=== PATIENT | female | born 1970 | race Two or more races ===

== ENCOUNTER 2025-01-22 21:25 | Emergency (ER) | payer MEDICAID, SELFPAY ==
[2025-01-22 21:25] VITALS: BMI 32.9
[2025-01-22 21:30] VITALS: BP 132/87; PULSE 99; RESP 18; TEMP 36.6; O2SAT 98
--- NOTE | 2025-01-22 22:00 | PC.NURSE ---
Pt was called back to talk to a provider but told me she wanted to go home. Instructed Pt to wait at the front office secretary for the triage nurse so she can AMA.
== END 2025-01-22 22:05 | disposition left against medical advice (07) ==
LOC: SERX 22:02
PROVIDERS: Emergency Provider Emergency Medicine
DX: Z53.21 Procedure and treatment not carried out due to patient leaving prior to being seen by health care provider (principal)
CPT/HCPCS: 99282

== ENCOUNTER → 2025-01-27 | Outpatient (CLI) | payer MEDICAID, SELFPAY ==
--- NOTE | 2025-01-27 | XR_ITS ---
Shoulder bilateral, 6 views Technique: Shoulder AP internal rotation, AP external rotation, Y view shoulder each shoulder total 6 views Exam date and time :January 27, 2025 1128 hours INDICATIONS: Shoulder pain 8 years, diagnosis rheumatoid arthritis FINDINGS: Severe osteopenia No shoulder fractures or dislocations No erosive arthritis. No AC joint separation IMPRESSION: Severe osteopenia No erosive arthritis identified
== END | disposition home or self-care (01) ==
PROVIDERS: PCP Nurse Practitioner Family; Referring Provider Physician Assistant; Visit Provider Physician Assistant
DX: M85.812 Other specified disorders of bone density and structure, left shoulder (principal); M85.811 Other specified disorders of bone density and structure, right shoulder
CPT/HCPCS: 73030

== ENCOUNTER → 2025-02-12 | Outpatient (CLI) | payer MEDICAID, SELFPAY ==
--- NOTE | 2025-02-12 09:00 | XR_ITS ---
Examination: Screening digital mammography, bilateral Computer aided detection 3-D breast Tomosynthesis, bilateral Date and time of exam: February 12, 2025 0844 hours INDICATIONS: Left breast pain beginning 2-3 months ago Technique: Nonmagnified MLO, CC views of the breasts to been obtained, reconstructed from 3-D Tomosynthesis images. R2 computer aided detection program utilized for evaluation of suspicious masses and/or abnormal calcifications. 3-D Tomosynthesis images obtained. Findings: The breasts are heterogeneously dense, which may obscure small masses Intact implants. Benign calcifications. No suspicious masses Impression: BI-RADS category II: Benign Findings. Recommend 1 year follow-up mammogram. Given the patient's history of left breast pain, recommend bilateral breast sonography follow-up
== END | disposition home or self-care (01) ==
LOC: CDIM 08:32
PROVIDERS: PCP Nurse Practitioner Family; Referring Provider Nurse Practitioner Family; Visit Provider Nurse Practitioner Family
DX: Z12.31 Encounter for screening mammogram for malignant neoplasm of breast (principal); R92.323 Mammographic fibroglandular density, bilateral breasts; R92.1 Mammographic calcification found on diagnostic imaging of breast
CPT/HCPCS: 77063; 77067

== ENCOUNTER 2025-04-22 10:07 | Emergency (ER) | payer MEDICAID, SELFPAY ==
[2025-04-22] VITALS (8 sets, daily range): BP systolic 131–174; BP diastolic 78–104; PULSE 68–92; RESP 15–25; TEMP 36.1–36.8; O2SAT 96–100; BMI 33.3
--- NOTE | 2025-04-22 10:17 | XR_ITS ---
EXAMINATION: PA chest single view TECHNIQUE: Upright PA chest single view Date and time: April 22, 2025, 1023 hours INDICATIONS: Chest pain coughing beginning 1 month ago. FINDINGS: Normal heart size Right ventricular peritoneal shunt tube No pneumonia or pulmonary edema. Moderate osteopenia IMPRESSION: No pneumonia or pulmonary edema
--- NOTE | 2025-04-22 10:17 | XR_ITS ---
Examination: CT brain head without contrast. 2-D sagittal coronal reconstructions Date and time of exam: April 22, 2025, 1127 hours COMPARISON: July 26, 2022 INDICATIONS: Headache today CTDI: vol (mGy): 51.6 DLP: (mGycm): 1019 Technique: Multiple CT axial sections of the brain have been obtained, 5 mm slice thickness. Contrast has not been administered. 2-D sagittal, coronal reconstructions have been obtained Low dose protocols were performed. One or more of the following dose reduction techniques were used; automated exposure control, adjustment of the mA and/or KV according to patient size, use of iterative reconstruction technique. Findings: Ventricles remain moderately enlarged Ventricular shunt tube tip projects left frontal horn No midline shift No acute hemorrhage either intra or extra-axial No cranial vault fracture IMPRESSION: Abnormal moderate ventricular enlargement, consider shunt malfunction
[2025-04-22] MEDS: KETOROLAC INJ 30 MG/ML VIAL IM (10:46)
--- NOTE | 2025-04-22 16:06 | PD.EDADULT ---
ED General RME/HPI General Chief complaint: Weakness Stated complaint: WEAKNESS Time Seen by Provider: 04/22/25 10:16 Arrival date/time: 04/22/25 10:07 Limitations: no limitations RME / HPI RME / HPI narrative: 55 year old female with history of COMMISSIONED FIRE OFFICER shunt placement in 2022 [facility] presents to the ED BIBA from home for evaluation of left-sided headache today. Reportedly has had headache frequently on/off x several weeks. No neck pain or fever. Patient states she was evaluated here 2 years ago where she was transferred to [facility] due to ventriculomegaly. Patient states from [facility] she was transferred to [facility] and had a COMMISSIONED FIRE OFFICER shunt placed. States she failed to follow up with [facility] and has yet to see neurologist or neurosurgeon. Related Data Home Medications ?Medication ?Instructions ?Recorded ?Confirmed amitriptyline 25 mg tablet 25 mg PO DAILY 02/28/24 02/28/24 diclofenac sodium 75 mg 75 mg PO DAILY 02/28/24 02/28/24 tablet,delayed release folic acid 1 mg tablet 3 mg PO QDAY 02/28/24 02/28/24 prednisone 10 mg tablet 10 mg PO EVERYOTHERDAY 02/28/24 02/28/24 Previous Rx's ?Medication ?Instructions ?Recorded docusate sodium 100 mg capsule 100 mg PO BID #20 caps 02/29/24 (Colace) hydrocodone 5 mg-acetaminophen 325 1 tab PO Q8H PRN pain (scale score 02/29/24 mg tablet 7-10) #10 tabs Allergies Allergy/AdvReac Type Severity Reaction Status Date / Time latex Allergy Intermediate Hives Verified 04/22/25 10:16 Review of Systems Review of Systems Systems Reviewed: All systems reviewed, normal except as documented Past Medical History Past Medical History NEUROLOGIC: Positive Neurological Disorders (hydrocephalus 2022) and Head Trauma (fell backwards at 27 yrs old) CARDIAC: Positive Hypertension REPRODUCTIVE: Positive Previous Pregnancies (5) MUSCULOSKELETAL: Positive Musculoskeletal Disorders and Rheumatoid Arthritis ENT: Positive Head Trauma (fell backwards at 27 yrs old) PSYCHO/SOCIAL: Positive Anxiety OTHER HISTORY: Positive Hospitalization (surgery), Chicken Pox, Measles and Mumps Family History FAMILY HISTORY: Positive Family Cancer Surgical History SURGICAL: Positive Brain Shunt and Hysterectomy Social History SMOKING STATUS: Never smoker ED Exam General Limitations: Present no limitations General appearance: Present alert and in no apparent distress Head Head exam: Present atraumatic and other (palpated the shunt on the left frontal area going to the temporal area, did not feel a reservoir. ) Eye Eye exam: Present normal appearance, PERRL and EOMI ENT ENT exam: Present normal exam, normal oropharynx and mucous membranes moist Neck Neck exam: Present normal inspection, full ROM and trachea midline Chest Chest inspection: Present normal inspection and symmetric chest wall rise Respiratory Respiratory exam: Present normal lung sounds bilaterally Cardiovascular Cardiovascular exam: Present regular rate, normal rhythm and normal heart sounds Abdominal Exam Abdominal exam: Present soft and normal bowel sounds Extremities Exam Extremities exam: Present normal inspection and full ROM Back Exam Back exam: Present normal inspection and full ROM Neurological Exam Neurological exam: Present alert, oriented X3 and CN II-XII intact Psychiatric Psychiatric exam: Present normal affect and normal mood Skin Skin exam: Present warm, dry, intact and normal color Course Quality Measures none Orders Category Date Time Status Referral - Mobile Nurse Stat Cons 04/22/25 16:00 Active Diet Clear Liquid Diet 04/23/[address] head/brain wo con Stat Exams 04/22/25 10:17 Completed CXRP [XR chest 1V portable] Stat Exams 04/22/25 10:17 Completed CBC Stat Lab 04/23/25 06:31 Completed CMP [Comprehensive Metabolic Panel] Stat Lab 04/23/25 06:31 Completed UA, C/S IF [Urinalysis, C/S if Indicated] Stat Lab 04/23/25 07:49 Completed Dexamethasone Inj [Decadron Inj] 10 mg Med 04/23/25 05:50 Discontinued Sodium Chloride 0.9% [Ns] 100 ml IV X1 Etomidate Inj [Amidate Inj] Med 04/22/25 20:53 Discontinued 20 mg .ROUTE .STK-MED ONE Ketorolac Inj [Toradol Inj] Med 04/22/25 10:18 Discontinued 30 mg IM X1 ONE Morphine* Inj Med 04/22/25 20:45 Discontinued 4 mg IVP X1 ONE Ondansetron Inj [Zofran Inj] Med 04/22/25 23:30 Discontinued 4 mg IVP X1 ONE Ondansetron Inj [Zofran Inj] Med 04/23/25 07:42 Discontinued 4 mg IVP X1 ONE Prochlorperazine Inj [Compazine Inj] Med 04/23/25 05:50 Discontinued 5 mg IV X1 ONE Rocuronium Inj [Zemuron Inj] Med 04/22/25 20:54 Discontinued 100 mg .ROUTE .STK-MED ONE fentaNYL INJ [Sublimaze Inj] Med 04/23/25 05:50 Discontinued 50 mcg IVP X1 ONE Vital Signs Vital signs: Vital Signs Temperature 97.0 F 04/22/25 10:10 Pulse Rate 86 04/22/25 10:10 Respiratory Rate 17 04/22/25 10:10 Blood Pressure 131/78 H 04/22/25 10:10 Pulse Oximetry (%) 100 04/22/25 10:10 Oxygen Delivery Method Room Air 04/22/25 10:10 Pulse ox is 100% on room air which is adequate. Discharge Plan Plan Patient Disposition: HOME (Self Care) Prescriptions/Referrals Prescriptions/Med Rec: No Action prednisone 10 mg Tablet 10 mg PO EVERYOTHERDAY amitriptyline 25 mg tablet 25 mg PO DAILY Patient Comments: TAKE 1 TABLET BY MOUTH ONCE DAILY AT NIGHT diclofenac sodium 75 mg Tablet,Delayed Release (Dr/Ec) 75 mg PO DAILY folic acid 1 mg Tablet 3 mg PO QDAY docusate sodium [Colace] 100 mg capsule 100 mg PO BID Qty: 20 0RF hydrocodone-acetaminophen 5-325 mg tablet 1 tab PO Q8H MDD 3 PRN (Reason: pain (scale score 7-10)) Qty: 10 0RF Referrals: Rocio Oglesby FNP [Primary Care Provider] - In 1 week Problem List Clinical Impression: Headache, Hydrocephalus managed with COMMISSIONED FIRE OFFICER shunt Patient/Caregiver Discharge Instructions Additional Instructions: Your case was reviewed by [facility] and they do not believe that this is an urgent or emergent transfer. They believe it can be followed up as an outpatient. Print Language: Estonian Stand Alone Forms: [employer] Award Info., Patient Portal Info Letter MDM Narrative Sign Out note: 1800: Patient signed out to Dr. Coulter pending transfer. MDM hospital course (for use when minimal MDM required): Sia Goncalves am scribing for and in the presence of Dr. Gotti. The patient was evaluated here 2 years ago where she was transferred to [facility] and had a COMMISSIONED FIRE OFFICER shunt placed. States she failed to follow up with [facility] and has yet to see neurologist or neurosurgeon. Today CT scan shows worsening ventriculomegaly most likely due to shunt malfunction. The only information the patient has with her is a medtronic card and states the name of a neurosurgeon Dr. Harleen demarco. I discussed case with transfer nurse who will begin transfer process. Clinical Information Provided by: patient and EMS Medical Records reviewed [facility] and EMS Meds/Rx considered, not ordered None Labs/Rad/Tests considered, not ordered None Chronic Illness/Social Conditions which may negatively complicate care or outcome(s)-explain: None or not applicable EKG EKG not done Labs Labs: none Imaging Imaging Interpretation(s): Ordering Physician: Bry Gotti MD Date of Service: 04/22/25 Procedure(s): XR chest 1V portable Accession Number(s): [id number] cc: Bry Gotti MD; Lan Lakhani MD~ EXAMINATION: PA chest single view TECHNIQUE: Upright PA chest single view Date and time: April 22, 2025, 1023 hours INDICATIONS: Chest pain coughing beginning 1 month ago. FINDINGS: Normal heart size Right ventricular peritoneal shunt tube No pneumonia or pulmonary edema. Moderate osteopenia IMPRESSION: No pneumonia or pulmonary edema Dictated By: Lan Lakhani MD Signed By: <Electronically signed by Lan Lakhani MD in OV> 04/22/25 1057 Ordering Physician: Bry Gotti MD Date of Service: 04/22/25 Procedure(s): CT head/brain wo con Accession Number(s): [id number] cc: Bry Gotti MD; Lan Lakhani MD~ Examination: CT brain head without contrast. 2-D sagittal coronal reconstructions Date and time of exam: April 22, 2025, 1127 hours COMPARISON: July 26, 2022 INDICATIONS: Headache today CTDI: vol (mGy): 51.6 DLP: (mGycm): 1019 Technique: Multiple CT axial sections of the brain have been obtained, 5 mm slice thickness. Contrast has not been administered. 2-D sagittal, coronal reconstructions have been obtained Low dose protocols were performed. One or more of the following dose reduction techniques were used; automated exposure control, adjustment of the mA and/or KV according to patient size, use of iterative reconstruction technique. Findings: Ventricles remain moderately enlarged Ventricular shunt tube tip projects left frontal horn No midline shift No acute hemorrhage either intra or extra-axial No cranial vault fracture IMPRESSION: Abnormal moderate ventricular enlargement, consider shunt malfunction Dictated By: Lan Lakhani MD Signed By: <Electronically signed by Lan Lakhani MD in OV> 04/22/25 1152 Medication Administration(s) Medication Administration History Discontinued Medications Etomidate (Etomidate Inj 2 Mg/Ml Vial 10 Ml) Confirm Administered Dose 20 mg .ROUTE .STK-MED ONE Stop: 04/22/25 20:54 Last Admin: 04/22/25 21:11 Dose: Not Given Documented By: DT Non-Admin Reason: RSI FOR UNREGISTRED PT Fentanyl Citrate (Fentanyl Cit Inj 50 Mcg/Ml Amp 2ml) 50 mcg IVP X1 ONE Stop: 04/23/25 05:51 Last Admin: 04/23/25 07:50 Dose: 50 mcg Documented By: BY Dexamethasone Sodium Phosphate (10 mg/ Sodium Chloride) 101 mls @ 101 mls/hr IV X1 ONE Stop: 04/23/25 05:51 Last Infusion: 04/23/25 08:52 Dose: Infused Documented By: Admin: 04/23/25 07:52 Dose: 101 mls/hr Documented By: BY Ketorolac Tromethamine (Ketorolac Inj 30 Mg/Ml Vial) 30 mg IM X1 ONE Stop: 04/22/25 10:19 Last Admin: 04/22/25 10:46 Dose: 30 mg Documented By: VL Morphine Sulfate (Morphine Sulf Inj 4 Mg/Ml Vial) 4 mg IVP X1 ONE Stop: 04/22/25 20:46 Last Admin: 04/22/25 20:49 Dose: 4 mg Documented By: AC Ondansetron HCl (Ondansetron Inj 2 Mg/Ml Inj 2 Ml) 4 mg IVP X1 ONE; Protocol Stop: 04/22/25 23:31 Last Admin: 04/22/25 23:43 Dose: 4 mg Documented By: LILY Ondansetron HCl (Ondansetron Inj 2 Mg/Ml Inj 2 Ml) 4 mg IVP X1 ONE; Protocol Stop: 04/23/25 07:43 Last Admin: 04/23/25 07:46 Dose: 4 mg Documented By: BY Prochlorperazine Edisylate (Prochlorperazine Inj 5 Mg/Ml Vial 2 Ml) 5 mg IV X1 ONE; Protocol Stop: 04/23/25 05:51 Last Admin: 04/23/25 07:48 Dose: 5 mg Documented By: BY Rocuronium [place] (Rocuronium Inj 10 Mg/Ml Vial 10 Ml) Confirm Administered Dose 100 mg .ROUTE .STK-MED ONE Stop: 04/22/25 20:55 Last Admin: 04/22/25 21:11 Dose: Not Given Documented By: LILY Non-Admin Reason: ordered on wrong patient See above
--- NOTE | 2025-04-22 17:32 | PC.CM ---
Addendum entered by Danelle Khan RN 04/22/25 19:37: I handed off to ED charge nurse and I gave her the packet with 1 CD. Addendum entered by Danelle Khan RN 04/22/25 18:15: 1740 I made a CD for packet. 1730 I received the link from [facility] and I send information over via link. Original Note: 1705 I spoke to Kerri with [facility] and she states she will send me a link and she wants me to send a packet with requested information. 1650 I called and initiated a transfer with [facility]. I started packet and I will make a CD. 1620 I received a referral to transfer patient for neurosurgery. Patient has been seen in 2022 in [facility] and had a shut placed. Patient has worsening ventriculomegaly most likely due to shut malfunction. Per Dr. Gotti notes patient failed to have an follow up care.
[2025-04-22] MEDS: MORPHINE SULF INJ 4 MG/ML VIAL IVP (20:49)
[2025-04-22] MEDS: ONDANSETRON INJ 2 MG/ML INJ 2 ML 4 MG IVP (23:43)
[2025-04-23] VITALS (12 sets, daily range): BP systolic 102–148; BP diastolic 61–98; PULSE 58–85; RESP 16–20; TEMP 36.6–36.9; O2SAT 94–100
--- NOTE | 2025-04-23 03:01 | PC.NURSE ---
Christine from [facility] stated the pt needs to have insurance authorization for transfer. This proposal writer will relay info to transfer nurse.
--- NOTE | 2025-04-23 04:07 | EDNOTE_ITS ---
Emergency Room Addendum Addendum Narrative: 1800: Care assumed from Dr. Gotti (emergency physician). Past medical, surgical, social and family history reviewed. Vitals and home medications reviewed. Results and treatment plan discussed. I will assume the care of the patient at this time and will follow the patient, pending transfer. The following addendum documentation note is intended to reflect any pending information, findings, or radiology results not included in the patient?s initial chart by the previous shift scribe. 05:50 - Assumed care of this 55 y/o female with Hx of obstructive hydropcephalus requiring CLINICAL RESEARCH ASSOCIATE shunt placed in 2022 who has not received F/U since that time now presenting with frontal-occipital pressure-like TORREZ approximately 1 month. Patient remained neurologically intact. Fundoscopic examination demonstrates disc margins apparent. Patient was treated with variety of medications including IV steroids, low-dose narcotic analgesics, and phenothiazine. Currently awaiting [facility] physicians to respond to request for evaluation of shunt. Final diagnosis includes obstructive hydrocephalus. Patient will be endorsed by AM physician. Care assumed by Dr. Lopez (emergency physician). Past medical, surgical, social and family history reviewed. Vitals and home medications reviewed. Results and treatment plan discussed. They will assume the care of the patient at this time and will follow the patient, pending lab results and transfer.
--- NOTE | 2025-04-23 05:55 | PC.NURSE ---
Arsenio from [facility] called regarding labs, there was no labs drawn. They are requesting CBC, CMP and request them to be faxed over to once resulted
[2025-04-23 06:48] LABS: Basophils # (Auto) 0.0 Thou/mm3 (0.0-0.2); Basophils % (Auto) 0 % (0-2.5); Eosinophils # (Auto) 0.0 Thou/mm3 (0.0-0.5); Eosinophils % (Auto) 0 % (0-10); Hematocrit 41.2 % (36.0-46.0); Hemoglobin 13.1 g/dL (12.0-16.0); Immature Granulocytes Auto 0.03 Thou/mm3 (0.00-0.00); Lymphocytes # (Auto) 1.5 Thou/mm3 (1.0-4.8); Lymphocytes % (Auto) 20 % (10-50); Mean Corpuscular HGB Conc 31.8 g/dl (31.0-37.0); Mean Corpuscular Hemoglobin 25.4 pg (25.0-35.0); Mean Corpuscular Volume 80 fL (80-100); Monocytes # (Auto) 0.6 Thou/mm3 (0.0-0.8); Monocytes % (Auto) 8 % (0-12); Neutrophils # (Auto) 5.3 Thou/mm3 (1.8-7.7); Neutrophils % (Auto) 71 % (37-80); Nucleated Red Blood Cell # 0.00 Thou/mm3 (0.00-0.00); Nucleated Red Blood Cell % 0 /100 WBC (0); Platelet Count 231 Thou/mm3 (140-440); RDW Standard Deviation 44.5 fL (36.4-46.3); Red Blood Count 5.16 Miln/mm3 (4.00-5.20); White Blood Count 7.4 Thou/mm3 (3.6-11.0)
[2025-04-23 07:09] LABS: Alanine Aminotransferase 17 U/L (10-49); Albumin, Serum 4.4 gm/dL (3.5-5.0); Albumin/Globulin Ratio 1.7 (1.2-2.2); Alkaline Phosphatase 83 U/L (46-116); Anion Gap 7 (7-16); Aspartate Amino Transferase 14 U/L (0-34); BUN/Creatinine Ratio 18 Ratio (12-20); Bilirubin,Total 0.7 mg/dL (0.3-1.2); Blood Urea Nitrogen 14 mg/dL (9-23); Calcium 9.3 mg/dL (8.3-10.6); Calcium (Corrected) 9.3 mg/dL (8.5-10.1); Carbon Dioxide 28.6 mMol/L (20.0-31.0); Chloride 105 mMol/L (98-107); Creatinine (Component) 0.8 mg/dL (0.6-1.3); Estimated Creatinine Clearance 81.0 mL/min (>60); Globulin 2.6 gm/dL (2.3-3.5); Glucose 114 mg/dL (74-106); Osmolality,Calculated 282 (275-295); Potassium 5.0 mMol/L (3.4-5.1); Sodium 141 mMol/L (136-145); Total Protein 7.0 gm/dL (5.7-8.2); eGFR > 60 See Note
[2025-04-23] MEDS: ONDANSETRON INJ 2 MG/ML INJ 2 ML 4 MG IVP (07:46)
[2025-04-23] MEDS: PROCHLORPERAZINE INJ 5 MG/ML VIAL 2 ML IV (07:48)
[2025-04-23] MEDS: fentaNYL CIT INJ 50 mCg/ML AMP 2ML IVP (07:50)
[2025-04-23] MEDS: DEXAMETHASONE INJ 10 MG in SODIUM CHLORIDE 0.9% 100 ML 101 MG IV (07:52)
--- NOTE | 2025-04-23 07:53 | PC.CM ---
I reviewed notes from night ED charge nurse. I faxed labs to [facility].
[2025-04-23 07:56] LABS: Collection Type, Urine Clean Catch
--- NOTE | 2025-04-23 08:01 | EDNOTE_ITS ---
Emergency Room Addendum <Miguel Angel Lopez MD - Last Filed: 04/23/25 16:58> Addendum Narrative: I took over the care from previous shift physician Dr. Coulter, at 06:00 AM on 04/23/2025.? See previous notes for complete H & P and ED course.?? I reviewed all diagnostic test results. Diagnoses include: Headache with BANBURY MIXER OPERATOR shunt malfunction Waiting for [facility] to review for transfer. At 6 PM on 04/23/2025, the care of the patient was transferred Dr. Lewis. During my watch, the patient remained stable. Miguel Angel Lopez MD <Sia Jackson - Last Filed: 04/23/25 16:29> Addendum Narrative: I took over the care from previous shift physician Dr. Coulter at 06:00 AM on 04/23/2025.? See previous notes for complete H & P and ED course.?? I reviewed all diagnostic test results. My interpretation of the chest x-ray is no active disease. My review of the CT report is?moderate ventricular enlargement. Blood tests and urine tests?are unremarkable. Diagnoses include: Treatment here included: Zofran Fentanyl Dexamethasone Patient has remained stable through ED course. At 6 PM on 04/23/2025, the care of the patient was transferred Dr. Lewis. Miguel Angel Lopez MD
[2025-04-23 08:11] LABS: Bilirubin,Urine Negative (Negative); Blood,Urine Negative (Negative); Clarity,Urine Clear (Clear/Hazy); Color,Urine Yellow (Lt Yel-Yel); Culture Indicated,Urine Not Indicated; Glucose, Urine Negative (Negative); Ketones,Urine Negative (Negative); Leukocyte Esterase,Urine Negative (Negative); Nitrite,Urine Negative (Negative); PH,Urine 6.0 (5.0-7.0); Protein,Urine Negative (Neg - Trace); RBC,Urine 5 /hpf (0-3); Specific Gravity,Urine 1.022 (1.001-1.035); Squamous Epithelial Cell,Urine 1 /hpf (0-5); Urobilinogen,Urine Negative mg/dL (0.0-1.0); WBC,Urine < 1 /hpf (0-5)
--- NOTE | 2025-04-23 10:04 | PC.CM ---
Addendum entered by Danelle Khan RN 04/23/25 19:21: I updated Ney night charge nurse. I let him know patient is in ED. Addendum entered by Danelle Khan RN 04/23/25 19:18: 1730 I spoke to [facility] transfer center and they are still reviewing patient. I reminded them that patient is waiting in our ED. They stated they understand but they have to wait to hear back from the doctors. Addendum entered by Danelle Khan RN 04/23/25 15:06: 1440 I called [facility] transfer center to follow up on transfer request. The stated they have all the paperwork and they are having their team review patient. I reminded them that patient is in our ED and my doctor would like an update. They stated they are aware patient in our ED but they will call once the their doctors get back to them. I updated Dr. Lopez. Original Note: 0900 I called and spoke to Kerri with the transfer center at [facility]. She states patient has been cleared financially and nurse RN is reviewing patient at this time. I let Kerri know patient is still in our ED.
--- NOTE | 2025-04-23 17:54 | PC.NURSE ---
SPOKE TO [facility] FOR PATIENT TRANSFER AND THERE IS STILL NO ANSWER BACK TO WHEN SHE WILL BE LEAVING, STATES THE DRS AT THE RECIVING FACILITY ARE STILL COMMUNICATING REGARDING HER CASE , AND THAT THEY WILL GET BACK TO US
--- NOTE | 2025-04-23 18:35 | PD.EDADDENDU ---
Emergency Room Addendum <Carleen Lopez - Last Filed: 04/23/25 19:36> Addendum Narrative: 1800: Care assumed from Dr. Lopez, the previous shift emergency physician. Past medical, surgical, social and family history reviewed. Vitals and home medications reviewed. Results and treatment plan discussed. I will assume the care of the patient at this time and will follow the patient, pending transfer. Please refer to the emergency department record for history and examination from initial visit. 1934: [facility] declined the patient for transfer due to the needed services being elective. <Hubert Lewis - Last Filed: 04/23/25 19:58> Addendum Narrative: 1800: Care assumed from Dr. Lopez, the previous shift emergency physician. Past medical, surgical, social and family history reviewed. Vitals and home medications reviewed. Results and treatment plan discussed. I will assume the care of the patient at this time and will follow the patient, pending transfer. Please refer to the emergency department record for history and examination from initial visit. 1934: [facility] declined the patient for transfer due to the needed services being elective. Patient was signed out to me and has been here for over 34 hours. 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 Her shunt was placed at [facility]. [facility] finally reviewed the case tonight. They stated that there is no emergent need for the patient to go down there. She may follow-up with them on an outpatient basis. I stressed to the patient that if the patient worsens the patient may go down to the [facility] emergency room and be seen in the emergency room. I spoke with her and her son, Giovanni, who agree to the discharge plan.
--- NOTE | 2025-04-23 19:37 | PC.NURSE ---
1933 RECEIVED CALL FROM VALERIO WITH [facility], SHE STATED THAT DR VIVAS STATES THIS IS AN ELECTIVE PROCEDURE AND THAT [facility] NURSES WILL BE ON STRIKE TOMORROW. DR VIVAS STATES THAT BRINGING PT TO [facility] AT THIS TIME IS NOT WARRANTED.
== END 2025-04-23 20:46 | disposition home or self-care (01) ==
PROVIDERS: Emergency Medicine; Emergency Provider Emergency Medicine; PCP Nurse Practitioner Family
DX: G91.9 Hydrocephalus, unspecified (principal)
CPT/HCPCS: 36415; 70450; 71045; 80053; 81001; 85025; 96365; 96372; 96375; 96376; 99284; J0780; J1100; J1885; J2270; J2405; J3010; J7050